=== PATIENT | male | born 1970 | race Caucasian/White ===

== ENCOUNTER 2017-09-16 15:21 | Emergency (ER) | payer SELFPAY ==
[~2017-09-16] VITALS: Ht 170.2 cm; Wt 63.2 kg
[2017-09-16] MEDS ORDERED: DELTASONE20 M1 PO (16:38)
[2017-09-16 16:48] VITALS: BP 154/99
== END 2017-09-16 16:47 | disposition home or self-care (01) ==
LOC: EME 15:21
DX: R20.8 Other disturbances of skin sensation (principal); W57.XXXA Bitten or stung by nonvenomous insect and other nonvenomous arthropods, initial encounter; M54.31 Sciatica, right side; G89.29 Other chronic pain; M25.511 Pain in right shoulder; F17.200 Nicotine dependence, unspecified, uncomplicated
CPT/HCPCS: 99281; 99283; J7512